=== PATIENT | male | born 1960 | race Caucasian/White ===

== ENCOUNTER 2017-08-30 18:03 | Emergency (ER) | payer MEDICARE, MEDICAID ==
[~2017-08-30] VITALS: Ht 185.4 cm; Wt 159.0 kg
[~2017-08-30 18:03] MED LIST: ALBUTEROL S2.5 MG/.5 IN; AMLODIPINE10 MG PO; BACTRIM DS1 TAB PO; CEPHALEXIN500 MG PO; COZAAR25 MG PO; DOXYCYCL HYC100 M4 PO; DUONEB IN; GLUCOPHAGE500 MG PO; HYDROCHLORO25 MG/TAB PO; HYDROCHLOROT25 MG PO; LASIX 20 MG20 MG/TAB PO; LASIX20 MG PO; LEVAQUIN750 MG PO; LISINOP/HCTZ1 TAB OR; LISINOPRIL10 MG PO; LISINOPRIL20 M1 OR; LORTAB 10 PO; LORTAB 5/3255 MG PO; MELOXICAM15 MG PO; METOPROL TAR25 M1 OR; METOPROLOL OR; NAPROSYN500 MG PO; NO HOME MEDS; OXYGEN NAS; POLYTRIM OP; PREDNISONE10 MG PO; PROAIR RES108 MCG/AC IN; SIMVASTATIN10 MG PO; SYMBICORT1 AE1 IN; ULTRAM50 M1 PO; ZESTRIL20 MG OR
[2017-08-30] MEDS ORDERED: ROSUVASTATIN CA10 MG PO (18:24)
[2017-08-30 18:46] LABS: HEMATOCRIT 51.5 % (39.0-50.0); HEMOGLOBIN 16.4 g/dl (14.0-18.0); IMMATURE GRANULOCYTES 0.4 % (0.0-1.0); MEAN CELL VOLUME 94.1 fL CALC (80.0-100.0); MEAN CORPUSCULAR HGB CONC 31.8 g/L CALC (32.0-36.0); NEUT# 12.35 thou/uL (1.82-7.42); RED BLOOD COUNT 5.47 mill/uL (4.70-6.10); RED CELL DISTRI WIDTH 13.2 % (11.5-15.5)
[2017-08-30 18:56] LABS: INFLUENZA A NONE DETECTED (NONE DETECT); INFLUENZA B NONE DETECTED (NONE DETECT)
[2017-08-30 19:00] LABS: ALBUMIN 3.5 g/dL (3.2-5.0); ALKALINE PHOSPHATASE 99 u/l (38-126); ANION GAP 16 (6-22 (CALC)); BILIRUBIN, TOTAL 0.8 mg/dL (0.0-1.4); BUN 14 mg/dL (9-20); BUN/CREATININE RATIO 14 (12-20 (CALC)); CALCIUM 9.1 mg/dL (8.4-10.2); CARBON DIOXIDE 32 mmol/l (22-30); CHLORIDE 92 mmol/l (95-108); GFR > 60 ML/MIN (>=60 (CALC)); GFR FOR AFR.AMER. > 60 ML/MIN (>=60 (CALC)); GLUCOSE 186 mg/dL (75-110); POTASSIUM 4.5 mmol/l (3.5-5.1); SGOT/AST 26 u/l (17-59); SGPT/ALT 40 u/l (21-72); SODIUM 135 mmol/l (137-146); TOTAL PROTEIN 6.7 g/dL (6.3-8.2)
[2017-08-30 19:12] LABS: MYOGLOBIN 34 ng/mL (0 - 121)
[2017-08-30 23:16] VITALS: BP 138/73
== END 2017-08-30 23:15 | disposition short-term general hospital (02) ==
LOC: ED 18:03
PROVIDERS: Emergency Medicine
DX: J44.1 Chronic obstructive pulmonary disease with (acute) exacerbation (principal); R91.8 Other nonspecific abnormal finding of lung field; I50.9 Heart failure, unspecified; R09.02 Hypoxemia; J90 Pleural effusion, not elsewhere classified; E11.9 Type 2 diabetes mellitus without complications; F17.210 Nicotine dependence, cigarettes, uncomplicated

== ENCOUNTER 2017-11-29 13:32 | Emergency (ER) | payer MEDICARE, MEDICAID ==
[~2017-11-29] VITALS: Ht 185.4 cm; Wt 140.0 kg
[~2017-11-29 13:32] MED LIST changes: +ROSUVASTATIN CA10 MG PO
[2017-11-29] MEDS ORDERED: BACTRIM DS1 TAB PO (13:50)
[2017-11-29] MEDS ORDERED: CEPHALEXIN500 M1 PO (13:50)
[2017-11-29 14:17] VITALS: BP 138/77
== END 2017-11-29 14:25 | disposition home or self-care (01) ==
LOC: ED 13:32
PROC: 0H94XZZ Drainage of Neck Skin, External Approach (ICD-10-PCS; principal; 2017-11-29)
DX: L02.11 Cutaneous abscess of neck (principal); E11.9 Type 2 diabetes mellitus without complications; I50.9 Heart failure, unspecified; J44.9 Chronic obstructive pulmonary disease, unspecified; F17.210 Nicotine dependence, cigarettes, uncomplicated; B96.89 Other specified bacterial agents as the cause of diseases classified elsewhere

== ENCOUNTER 2017-12-27 14:42 | Inpatient (IN) | payer MEDICARE, MEDICAID ==
[~2017-12-27] VITALS: Ht 185.4 cm; Wt 142.8 kg
[~2017-12-27 14:42] MED LIST changes: +CEPHALEXIN500 M1 PO
--- NOTE | 2017-12-27 14:44 | NUR ---
PT TO ROOM VIA WHEELCHAIR. PT CONVERSATIONALLY DYSPNIC. MD NOTIFIED OF PT STATUS AND RT PAGED. SAO2 92% ON ROOM AIR AT THIS TIME. PER PT HE WEARS 2 L OF O2 AT HOME WHEN NEEDED. PT PLACED ON 2 L NC. PT HAS HX OF COPD AND LUNG CA AT THIS TIME. LS DIMINISHED WITH WHEEZES BILATERALLY. HOB IN HIGH FOWLERS POSITION. CAP REFILL <3 SEC AT THIS TIME. NO EDEMA NOTED TO LOWER EXTREMITIES. PT AWARE OF PLAN OF CARE AND WAIT TIME. CALL MACDONALD WITHIN REACH, WILL CONTINUE TO MONITOR.
[2017-12-27 15:10] LABS: HEMATOCRIT 46.2 % (39.0-50.0); HEMOGLOBIN 15.8 g/dl (14.0-18.0); IMMATURE GRANULOCYTES 0.5 % (0.0-1.0); MEAN CELL VOLUME 95.7 fL CALC (80.0-100.0); MEAN CORPUSCULAR HGB 32.7 pG CALC (26.0-32.0); MEAN CORPUSCULAR HGB CONC 34.2 g/L CALC (32.0-36.0); NEUT# 14.1 thou/uL (1.82-7.42); RED BLOOD COUNT 4.83 mill/uL (4.70-6.10); RED CELL DISTRI WIDTH 15.9 % (11.5-15.5)
--- NOTE | 2017-12-27 15:25 | NUR ---
PT REPORTS RELIEF FROM NEB TX. SA02 CURRENTLY 94% ON 2 L NC. AT BEDSIDE AND PT SPEAKING IN COMPLETE SENTENCES TO . PT SITTING UPRIGHT IN STRETCHER. CALL MACDONALD WITHIN REACH.
[2017-12-27 15:39] LABS: ALBUMIN 4.2 g/dL (3.2-5.0); ALKALINE PHOSPHATASE 73 u/l (38-126); ANION GAP 19 (6-22 (CALC)); BILIRUBIN, TOTAL 1.5 mg/dL (0.0-1.4); BUN 11 mg/dL (9-20); BUN/CREATININE RATIO 14 (12-20 (CALC)); CARBON DIOXIDE 22 mmol/l (22-30); CHLORIDE 96 mmol/l (95-108); CREATININE 0.8 mg/dL (0.7-1.3); GFR > 60 ML/MIN (>=60 (CALC)); GFR FOR AFR.AMER. > 60 ML/MIN (>=60 (CALC)); POTASSIUM 4.2 mmol/l (3.5-5.1); SGOT/AST 21 u/l (17-59); SGPT/ALT 35 u/l (21-72); SODIUM 133 mmol/l (137-146); TOTAL PROTEIN 7.4 g/dL (6.3-8.2)
--- NOTE | 2017-12-27 16:00 | NUR ---
TEMP RECHECK 100.5. PT TALKING AND LAUGHING WITH SALES ENGAGEMENT MANAGER. SA02 95% AT THIS TIME. PT AWARE OF PENDING RESULTS AND WAIT TIME. CALL MACDONALD WITHIN REACH.
--- NOTE | 2017-12-27 16:40 | NUR ---
PT RESTING COMFORTABLY IN STRETCHER WATCHING TV. SAO2 95% ON 2L NC AT THIS TIME. PT DENIES ANY PAIN OR SOB AT THIS TIME. CALL MACDONALD WITHIN REACH. WILL CONTINUE TO MONITOR.
--- NOTE | 2017-12-27 17:15 | NUR ---
PT REQUESTING A DINNER TRAY AT THIS TIME. PT SITTING IN UPRIGHT POSITION, WATCHIN TV. PT AWARE OF PROBABLE ADMISSION AND WAIT TIME. TEMP RECHECK 98.5. CALL MACDONALD WITHIN REACH.
--- NOTE | 2017-12-27 18:02 | NUR ---
REPORT CALLED TO SAÚL GARRETT.
--- NOTE | 2017-12-27 18:20 | NUR ---
Admission Note Report Given to: GERRY HAYS Transported by: Wheelchair X Stretcher Transported with: X Nurse Transporter X Patent IV X O2 Care Attendant PT TO ROOM VIA STRECHER IN STABLE CONDITION. PT AMBULATED TO BED WITH A STEADY GAIT AND DENIES ANY SOB. NURSE TO NURSE BEDSIDE REPORT GIVEN.
--- NOTE | 2017-12-27 18:24 | NUR ---
PT ARRIVED FROM ER VIA STRETCHER ACCOMPANIED BY STAFF. IV SITE IS FREE FROM REDNESS OR EDEMA. HR IS REG, PULSES ARE STRONG X4, ABD IS SOFT WITH ACTIVE BS, BREATH SOUNDS ARE WHEEZING, CLEAR AND DIMINISHED IN THE BASES. FAMILY WILL BRING UP THE C PAP MACHINE. SUTURES ON THE BACK OF THE NECK IS CDI.
[2017-12-27 19:30] VITALS: BP 115/82
--- NOTE | 2017-12-27 20:00 | NUR ---
PATIENT SITTING UP IN THE BED WATCHING TV-ALERT AND ORIENTEDX3. O2 VIA NASAL CANNULA IN PLACE AT 2LPM. PATIENT STATES THAT HE USES O2 AT HOME PRN. VOIDING QS CLEAR YELLOW URINE. IV ROCEPHIN INFUSING ORDERED VIA LEFT AC IV SITE. SITE APPEARS HELATHY AT THIS TIME. PATIENT WITH BANDAID TO BACK OF HIS NECK-STATES THAT HE HAD SOME CYSTS REMOVED LAST WEEK BY DR. WALTON. SAFETY PRECAUTIONS. CALL LIGHT IN REACH. WILL CONT TO MONITOR.
--- NOTE | 2017-12-27 22:00 | NUR ---
[id number] JOLLY CALLED AND ORDERS RECIEVED-WILL ADMINISTER WHEN PROFILED ON EMAR.
--- NOTE | 2017-12-27 22:50 | NUR ---
PATIENT MEDICATED WITH 10UNITS OF REGULAR INSULIN ORDERED. PATIENT RESTING IN BED WATCHING TV-PROVIDED WITH SNACK. NO COMPLAINTS AT THIS TIME. CALL LIGHT IN REACH. WILL CONT TO MONITOR.
[2017-12-28 01:00] VITALS: BP 120/77
--- NOTE | 2017-12-28 01:09 | NUR ---
PATIENT RESTING IN BED WITH C-PAP IN PLACE AND APPEARS SLEEPING AT THIS TIME. CALL LIGHT IN REACH. WILL CONT TO MONITOR.
--- NOTE | 2017-12-28 02:12 | NUR ---
PATIENT RESTING IN BED WITH C-PAP IN PLACE. [id number] AT THIS TIME. CALL LIGHT IN REACH. WILL CONT TO MONITOR.
--- NOTE | 2017-12-28 03:52 | NUR ---
APPEARS SLEEPING WITH C-PAP IN PLACE. CALL LIGHT IN REACH. WILL CONT TO MONITOR.
[2017-12-28 04:30] VITALS: BP 115/78
[2017-12-28 07:45] VITALS: BP 145/73
--- NOTE | 2017-12-28 07:45 | NUR ---
PT IS RELAXING ON THE SIDE OF THE BED. IV SITE IS FREE FROM REDNESS OR EDEMA. HR IS REG, PULSES ARE STRONG X4, ABD IS SOFT WITH ACTIVE BS. BREATH SOUNDS ARE CLEAR AND WHEEZING AND DIMINISHED. CONTINUE TO OSBERVE AND MONITOR.
--- NOTE | 2017-12-28 12:30 | NUR ---
PT IS SITTING UP IN BED AND VISITING WITH FAMILY. NO DISTRESS NOTED. IV SITE IS FREE FROM REDNESS OR EDMEA. CONTINUE TO OSBERVE AND MONITOR.
[2017-12-28 15:23] VITALS: BP 127/73
--- NOTE | 2017-12-28 16:30 | NUR ---
PT IS SITTING UP IN BED WITH NO DISTRESS NOTED. IV SITE IS FREE FROM REDNESS OR EDEMA.
[2017-12-28 19:00] VITALS: BP 138/87
--- NOTE | 2017-12-28 19:49 | NUR ---
PATIENT SITTING UP IN THE BED WATCHING TV-ALERT AND ORIENTEDX3. O2 IS NOT IN USE AT THIS TIME WITH O2 SAT OF 95% ON RA. PATIENT WITH NO COMPLAINTS AT THIS TIME. HEP LOCK TO LEFT AC-SITE APPEARS HEALTHY AT THIS TIME. CALL LIGHT IN REACH. WILL CONT TO MONITOR.
--- NOTE | 2017-12-28 21:30 | NUR ---
[id number] WITH 10 UNITS OF NOVALOG SQ TO LEFT POST ARM. HS SNACK PROVIDED. NO COMPLAINTS AT THIS TIME. CALL LIGHT IN REACH. WILL CONT TO MONITOR.
--- NOTE | 2017-12-29 00:06 | NUR ---
APPEARS SLEEPING WITH C-PAP IN PLACE AND EYES CLOSED. CALL LIGHT IN REACH. WILL CONT TO MONITOR.
[2017-12-29 04:15] VITALS: BP 120/82
--- NOTE | 2017-12-29 04:48 | NUR ---
APPEARS SLEEPING WITH C-PAP IN PLACE. RESP ARE EVEN AND UNLABORED. CALL LIGHT IN REACH. WILL CONT TO MONITOR.
[2017-12-29 05:26] LABS: HEMOGLOBIN 14.4 g/dl (14.0-18.0); IMMATURE GRANULOCYTES 0.9 % (0.0-1.0); MEAN CELL VOLUME 97.7 fL CALC (80.0-100.0); MEAN CORPUSCULAR HGB 32.7 pG CALC (26.0-32.0); MEAN CORPUSCULAR HGB CONC 33.5 g/L CALC (32.0-36.0); NEUT# 16.7 thou/uL (1.82-7.42); RED BLOOD COUNT 4.4 mill/uL (4.70-6.10); RED CELL DISTRI WIDTH 16.3 % (11.5-15.5)
[2017-12-29 05:42] LABS: ALBUMIN 3.6 g/dL (3.2-5.0); ALKALINE PHOSPHATASE 68 u/l (38-126); ANION GAP 20 (6-22 (CALC)); BILIRUBIN, TOTAL 0.4 mg/dL (0.0-1.4); BUN 17 mg/dL (9-20); BUN/CREATININE RATIO 24 (12-20 (CALC)); CARBON DIOXIDE 25 mmol/l (22-30); CHLORIDE 98 mmol/l (95-108); CREATININE 0.7 mg/dL (0.7-1.3); GFR > 60 ML/MIN (>=60 (CALC)); GFR FOR AFR.AMER. > 60 ML/MIN (>=60 (CALC)); SGOT/AST 11 u/l (17-59); SGPT/ALT 27 u/l (21-72); SODIUM 138 mmol/l (137-146); TOTAL PROTEIN 6.6 g/dL (6.3-8.2)
--- NOTE | 2017-12-29 07:00 | NUR ---
RECEIVED BEDSIDE REPORT FROM MICHAEL PIÑA, SITTING IN BED WATCHING TV. RESPS EVEN AND UNLABORED ON ROOM AIR. DENIES PAIN OR DISCOMFORT. PLAN OF CARE DISCUSSED. SAFETY PRECAUTIONS REINFORCED. BED IN LOWEST POSITION WITH WHEELS LOCKED. CALL LIGHT WITHIN REACH. ENCOURAGED PT TO CALL FOR ANY NEEDS.
[2017-12-29 08:04] VITALS: BP 126/72
[2017-12-29 08:06] LABS: CHOLESTEROL HDL RATIO 2.9 (<4.4 (CALC))
[2017-12-29 08:07] VITALS: BP 126/72
--- NOTE | 2017-12-29 12:22 | NUR ---
SITTING IN BED EATIMNG LUNCH. VISITORS AT BEDSIDE. RESPS EVEN AND UNLABORED ON ROOM AIR. VOICES NO NEEDS AT THIS TIME. CALL LIGHT WITHIN REACH. WILL CONTINUE TO MONITOR.
--- NOTE | 2017-12-29 13:05 | NUR ---
DR RUSSO AT BEDSIDE, NEW ORDERS RECEIVED.
[2017-12-29] MEDS ORDERED: PREDNISONE10 MG PO (13:29)
[2017-12-29] MEDS ORDERED: LEVAQUIN750 MG PO (13:29)
--- NOTE | 2017-12-29 13:47 | NUR ---
IV site discontinued, cath intact. No edema , no redness, voices no discomfort.
--- NOTE | 2017-12-29 14:01 | NUR ---
Discharge instructions given. Patient verbalizes understanding of same. Discharged in stable condition via Wheelchair to Home with family. All belongings sent with pt.
== END 2017-12-29 14:00 | disposition home or self-care (01) | DRG 190 ==
LOC: ED 14:42 → ED-I 17:44 → ED 17:52 → MS2 17:53
PROVIDERS: Family Medicine; Nurse Practitioner Family; ADMIT Internal Medicine; ATTEND Internal Medicine
PROC: 5A09357 Assistance with Respiratory Ventilation, Less than 24 Consecutive Hours, Continuous Positive Airway Pressure (ICD-10-PCS; principal; 2017-12-28)
DX: J44.1 Chronic obstructive pulmonary disease with (acute) exacerbation (principal); J96.01 Acute respiratory failure with hypoxia; I11.0 Hypertensive heart disease with heart failure; I50.9 Heart failure, unspecified; E66.01 Morbid (severe) obesity due to excess calories; C34.11 Malignant neoplasm of upper lobe, right bronchus or lung; D75.89 Other specified diseases of blood and blood-forming organs; Z68.41 Body mass index [BMI] 40.0-44.9, adult; E78.5 Hyperlipidemia, unspecified; J44.0 Chronic obstructive pulmonary disease with (acute) lower respiratory infection; J20.9 Acute bronchitis, unspecified; R73.03 Prediabetes; G47.33 Obstructive sleep apnea (adult) (pediatric); Z87.891 Personal history of nicotine dependence
CPT/HCPCS: G0378

== ENCOUNTER 2019-01-22 15:13 | Inpatient (IN) | payer MEDICARE, MEDICAID ==
[~2019-01-22] VITALS: Ht 185.4 cm; Wt 136.0 kg
[~2019-01-22 15:13] MED LIST changes: +GABAPENTIN100 MG PO; +KLOR-CON SPRIN10 MEQ PO; +LOSARTAN POTASS25 MG PO; +PROAIR HFA IN
--- NOTE | 2019-01-22 15:24 | NUR ---
PT TO ROOM VIA WHEELCHAIR.
--- NOTE | 2019-01-22 15:38 | NUR ---
PT STATES SOB FOR THE LAST 3 DAYS- WEAKNESS STARTED TODAY- WAS SENT BY DR BEARD POSSIBLE SEPSIS. STATES SOB AND WEAKNESS- DENIES ANY C/P N/V. PT IS AOX4
[2019-01-22 16:21] LABS: IMMATURE GRANULOCYTES 0.8 % (0.0-5.0); MEAN CORPUSCULAR HGB 27.1 pG CALC (26.0-32.0); NEUT# 7.06 thou/uL (1.82-7.42); RED BLOOD COUNT 4.09 mill/uL (4.70-6.10); RED CELL DISTRI WIDTH 18.2 % (11.5-15.5)
--- NOTE | 2019-01-22 16:38 | NUR ---
PT RESTING ON STRETHCER, IV PATENT WITH FLUIDS RUNNING. NO COMPLAINTS STATED
[2019-01-22 16:52] LABS: HEMATOCRIT 35.8 % (39.0-50.0); HEMOGLOBIN 11.1 g/dl (14.0-18.0); MEAN CELL VOLUME 87.5 fL CALC (80.0-100.0)
[2019-01-22 16:59] LABS: ALBUMIN 3.6 g/dL (3.2-5.0); ANION GAP 18 (6-22 (CALC)); BUN 15 mg/dL (9-20); BUN/CREATININE RATIO 16 (12-20 (CALC)); CARBON DIOXIDE 25 mmol/l (22-30); CHLORIDE 95 mmol/l (95-108); CREATININE 0.9 mg/dL (0.7-1.3); GFR > 60 ML/MIN (>=60 (CALC)); GFR FOR AFR.AMER. > 60 ML/MIN (>=60 (CALC)); LIPASE 74 u/l (23-300); POTASSIUM 4.3 mmol/l (3.5-5.1); SODIUM 133 mmol/l (137-146); TOTAL PROTEIN 7.3 g/dL (6.3-8.2)
[2019-01-22 17:00] LABS: ALKALINE PHOSPHATASE 105 u/l (38-126); BILIRUBIN, TOTAL 0.9 mg/dL (0.0-1.4); SGOT/AST 26 u/l (17-59)
[2019-01-22] MEDS ORDERED: AMLODIPINE5 MG PO (17:14)
[2019-01-22] MEDS ORDERED: BUMETANIDE1 MG PO (17:15)
[2019-01-22] MEDS ORDERED: OXYCODONE HCL5 MG PO (17:16)
--- NOTE | 2019-01-22 17:38 | NUR ---
PT RESTING ON STRETCHER, NO COMPLAINTS STATED AT THIS TIME.
--- NOTE | 2019-01-22 18:51 | NUR ---
REPORT GIVEN TO REVA PIÑA
--- NOTE | 2019-01-22 19:04 | NUR ---
REPORT CALLED TO STEFAN- GIORGIO PIÑA ACCEPTED PT
[2019-01-22 19:05] LABS: URINE BILIRUBIN - DIPSTICK NEGATIVE (NEGATIVE); URINE BLOOD DIPSTICK NEGATIVE (NEGATIVE); URINE COLOR YELLOW; URINE GLUCOSE - DIPSTICK NEGATIVE (NEGATIVE); URINE KETONE NEGATIVE (NEGATIVE); URINE LEUK ESTERASE NEGATIVE (NEGATIVE); URINE NITRITE - DIPSTICK NEGATIVE (Negative); URINE PH 5.5 (4.5-8.0); URINE PROTEIN - DIPSTICK NEGATIVE (NEG-TRACE); URINE UROBILINOGEN - DIPSTICK 0.2 E.U./dL (0.2)
--- NOTE | 2019-01-22 19:09 | NUR ---
PT TRANSPORTED TO [id number] IN STABLE CONDTION.PT TAKES OFF HIS NASAL CANNULA SAYS HE ONLY USES O2 WHEN HE NEEDS IT AND HE DOES NOT NEED IT RIGHT NOW
[2019-01-22 19:20] VITALS: BP 118/72
--- NOTE | 2019-01-22 19:30 | NUR ---
PT. ARRIVED TO THE FLOOR VIA STRETCHER ACCOMPANIED BY ER NURSE. ADMISSION ASSESSMENT COMPLETED. UPDATED WITH POC. INSTRUCTED ON USE OF CALL LIGHT AND ORIENTED TO ROOM; VERBALIZES UNDERSTANDING. O2 SET AT BEDSIDE. IS TO BRING CPAP FROM HOME. PT. HAS TEMP OF 100.2, WILL MEDICATE WITH ORDERED PRN TYLENOL AND WILL REASSESS. PT. REPORTS THAT HE TAKES GABAPENTIN THREE TIMES A DAY AND IT IS ONLY PROFILED ONCE A DAY, WILL CALL MD TO CLARIFY ORDER. PT. REFUSES TO ALLOW STAFF TO INSPECT SKIN UNDERNEATH SHORTS. SWELLING NOTED TO BLE AND CHIQUITA HOSE APPLIED TO BLE. INSTRUCTED TO CALL FOR ALL OOB NEEDS AND VERBALIZES UNDERSTANDING. CALL LIGHT IS IN REACH. WILL CONTINUE TO MONITOR.
--- NOTE | 2019-01-22 20:32 | NUR ---
NOTIFIED MD FEEDER DRIVER OF CRITICAL LACTIC 2.2 AND THAT IT IS DOWN FROM INITIAL AT 2.8. ALSO NOTIFIED HIM OF PT. WANTING SYMBICORT AND GABAPENTIN TO BE ORDERED HE TAKES THESE AT HOME, NEW ORDERS RECEIVED FOR THESE MEDICATIONS, AND PT. IS INSTRUCTED OF NEED TO BRING SYMBICORT FROM HOME WE DO NOT CARRY THIS MEDICATION. ALSO NOTIFIED DR. RUSSO OF ELAVTED HR IN THE 100'S, MD IS AWARE OF THIS ALREADY AND OF HYPOTENSION, HOME B/P MEDS ARE ON HOLD.
[2019-01-22 23:46] VITALS: BP 98/60
--- NOTE | 2019-01-23 00:25 | NUR ---
pt. resting in bed on right side with eyes open, cpap on. denies needs. encouraged to call for any needs. call light is in reach.
[2019-01-23 03:29] VITALS: BP 111/69
--- NOTE | 2019-01-23 04:40 | NUR ---
PT. RESTING IN BED ON RIGHT SIDE WITH NO DISTRESS NOTED; DENIES NEEDS. NEW BAG OF ORDERED IVF HUNG. ENCOURAGED TO CALL FOR ANY NEEDS. CALL LIGHT IS IN REACH. WILL CONTINUE TO MONITOR.
--- NOTE | 2019-01-23 06:36 | NUR ---
STUDENT NURSE IN AT BEDSIDE GIVING EDUCATION ON INCENTIVE SPIROMETER.
--- NOTE | 2019-01-23 07:32 | NUR ---
Vancomycin consult Age: 58 yo Serum creatinine: 0.9 mg/dL Height: 72.8 Inches Weight (kg): 131.5 IBW (kg): 79.44 Dosing wt(kg): 131.5 Estimated Creatinine clearance (ml/min): 99.3 Vd (liters): 92.0 (factor used: 0.7 L/kg) Rachid (hr-1): 0.087 Half life (hrs): 7.97 Vancomycin 1250 mg q8h Predicted peak (mcg/mL): 25 Predicted trough (mcg/mL): 15
--- NOTE | 2019-01-23 09:00 | NUR ---
PT SITTING IN BED, NO SIGNS OF DISTRESS NOTED, RESP EVEN AND UNLABORED. PT ALERT AND ORIENTED X3, DISCUSSED POC, PT IN AGREEMENT, VITALS OBTAINED, 02 2L NC PRN, CPAP FROM HOME AT BEDSIDE FOR NIGHT TIME USE. ASSESSMENT COMPLETED, CALL LIGHT IN REACH,CONTINUE TO MONITOR.
[2019-01-23 09:01] VITALS: BP 98/51
[2019-01-23 09:12] LABS: HEMATOCRIT 32.9 % (39.0-50.0); IMMATURE GRANULOCYTES 0.7 % (0.0-5.0); MEAN CELL VOLUME 88.4 fL CALC (80.0-100.0); MEAN CORPUSCULAR HGB 26.9 pG CALC (26.0-32.0); MEAN CORPUSCULAR HGB CONC 30.4 g/L CALC (32.0-36.0); NEUT# 6.22 thou/uL (1.82-7.42); RED BLOOD COUNT 3.72 mill/uL (4.70-6.10); RED CELL DISTRI WIDTH 17.9 % (11.5-15.5)
[2019-01-23 09:33] LABS: MAGNESIUM 1.9 mg/dL (1.6-2.3)
[2019-01-23 09:35] LABS: ANION GAP 13 (6-22 (CALC)); BUN 10 mg/dL (9-20); BUN/CREATININE RATIO 16 (12-20 (CALC)); CARBON DIOXIDE 24 mmol/l (22-30); CHLORIDE 100 mmol/l (95-108); CREATININE 0.7 mg/dL (0.7-1.3); GFR > 60 ML/MIN (>=60 (CALC)); GFR FOR AFR.AMER. > 60 ML/MIN (>=60 (CALC)); POTASSIUM 3.9 mmol/l (3.5-5.1); SODIUM 134 mmol/l (137-146)
[2019-01-23 11:05] VITALS: BP 109/69
--- NOTE | 2019-01-23 11:16 | NUR ---
PT CONTINUED TO C/O BURNING PAIN EVEN AFTER GABAPENTIN, INFORMED CARDROOM DRAWING RUNNER, NEW ORDERS ENTERED, PT MEDICATED WITH LYRICA, DISCUSSED MEDICATION, PT IN AGREEMENT. CALL LIGHT IN REACH,CONTINUE TO MONITOR.
--- NOTE | 2019-01-23 12:00 | NUR ---
PT SITTING IN BED, STATES HE FEELS MUCH BETTER, THE BURNING PAIN IS NO LONGER THERE. CALL LIGHT IN REACH,CONTINUE TO MONITOR.
--- NOTE | 2019-01-23 15:35 | NUR ---
CALL RECEIVED FROM ED PT HAD AN 8 BEAT RUN BE LAMB NOTIFIED. PT SITTING IN BED STATES HE FELT HIS HEART RATE INCREASE BUT THOUGHT NOTHING OF IT. BP 114/66 HR 98. STAT EKG ORDERED AND STAT TROPONIN. CALL LIGHT IN REACH,CONTINUE TO MONITOR.
[2019-01-23 16:05] VITALS: BP 114/66
--- NOTE | 2019-01-23 16:54 | NUR ---
PT RESTING IN BED, NO SIGNS OF DISTRESS NOTED, RESP EVEN AND UNLABORED. PT VOICES NO NEEDS OR COMLPLAINTS AT THIS TIME. CALL LIGHT IN REACH,CONTINUE TO MONITOR.
--- NOTE | 2019-01-23 19:32 | NUR ---
ASSESSMENT COMPLETED. NO DISTRESS NOTED. IV SITE PATENT AND INFUSING ORDERED IVF WELL. URINAL AT BEDSIDE. TELEMETRY IN PLACE. PT. DECLINES CHIQUITA HOSE TO BE APPLIED AT THIS TIME. ENCOURATED TO CALL FOR ANY NEEDS. CALL LIGHT IS IN REACH.
[2019-01-23 19:38] VITALS: BP 112/65
[2019-01-24] VITALS (7 sets, daily range): BP systolic 105–131; BP diastolic 51–79
--- NOTE | 2019-01-24 | NUR ---
PT. RESTING IN BED WITH NO DISTRESS NOTED. DENIES NEEDS/PAIN. VSS. CALL LIGHT IS IN REACH.
--- NOTE | 2019-01-24 02:35 | NUR ---
PT. RESTING IN BED ON RIGHT SIDE WITH CPAP ON. DENIES NEEDS. URINAL EMPTIED OF 400MLS OF DARK YELLOW CLEAR URINE. IV SITE PATENT AND REMAINS FREE OF REDNESS OR IRRITATION; ERICKA GERBER PER ORDER. WILL CONTINUE TO MONITOR. TUYET LIGHT IS IN REACH.
--- NOTE | 2019-01-24 04:15 | NUR ---
STUDENT NURSE IN AT BEDSIDE OBTAINING VS. URINAL EMPTIED. DENIES NEEDS/PAIN. CALL LIGHT IS IN REACH.
[2019-01-24 05:20] LABS: HEMATOCRIT 32.6 % (39.0-50.0); HEMOGLOBIN 10.1 g/dl (14.0-18.0); IMMATURE GRANULOCYTES 0.8 % (0.0-5.0); MEAN CELL VOLUME 88.3 fL CALC (80.0-100.0); MEAN CORPUSCULAR HGB 27.4 pG CALC (26.0-32.0); NEUT# 5.45 thou/uL (1.82-7.42); RED BLOOD COUNT 3.69 mill/uL (4.70-6.10)
[2019-01-24 05:34] LABS: ANION GAP 14 (6-22 (CALC)); BUN 7 mg/dL (9-20); BUN/CREATININE RATIO 11 (12-20 (CALC)); CARBON DIOXIDE 25 mmol/l (22-30); CHLORIDE 101 mmol/l (95-108); CREATININE 0.7 mg/dL (0.7-1.3); GFR > 60 ML/MIN (>=60 (CALC)); GFR FOR AFR.AMER. > 60 ML/MIN (>=60 (CALC)); SODIUM 135 mmol/l (137-146)
--- NOTE | 2019-01-24 07:11 | NUR ---
PT SITTING IN BED, NO SIGNS OF DISTRESS NOTED, RESP EVEN AND UNLABORED. DISCUSSED POC, PT VERBALIZED UNDERSTANDING. IS AT BEDSIDE, ENCOURAGED IT'S USE. ASSESSMENT COMPLETED. CALL LIGHT IN REACH,CONTINUE TO MONITOR.
--- NOTE | 2019-01-24 09:36 | NUR ---
AIR BRAKE TESTER CALLED TO BEDSIDE, IV SITE LEAKING, #20 LAC REMOVED, CATHETER INTACT. NEW IV SITE PLACED TO PT TOLERATED WELL. CALL LIGHT IN REACH,CONTINUE TO MONITOR.
--- NOTE | 2019-01-24 10:38 | NUR ---
Vancomycin consult Weight: 131.5 Kilograms Current dose being given: 1250 mg Current dosing interval: 8 hrs Current infusion time (hrs): 2 Trough level obtained: 14 mcg/ml New rate constant (maria del carmen): 0.090 hr-1 Half-life: 7.70 Hours Vd from levels: 92.05 Liters (0.7 L/kg) Vancomycin 1500 mg Q8H Expected Cpeak: 29 mcg/mL Expected Ctrough: 17 mcg/mL
--- NOTE | 2019-01-24 17:27 | NUR ---
PT REQUESTING NEB TX, RT CALLED TO BEDSIDE.
--- NOTE | 2019-01-24 19:08 | NUR ---
ASSESSMENT COMPLETED. NO DISTRESS NOTED. O2 INFUSING PER NC. DENIES NEEDS. PT. REPORTS NO BM AND OFFERED LAXATIVE, PT DECLINES AT THIS TIME. INSTRUCTED PT. TO NOTIFY THIS WORK OVER RIG OPERATOR IF HE CHANGES HIS MIND; ALSO REMINDED HIM TO USE URINAL FOR ACCURATE OUTPUT. VERBALIZES UNDERSTANDING. IV SITE PATENT AND INFUISNG ORDERED VANCO. ENCOURAGED TO CALL FOR ANY NEEDS. CALL LIGHT IS IN REACH.
--- NOTE | 2019-01-24 20:00 | NUR ---
ER CALLED AND REPORTED PT'S HR WAS UP TO 160'S, BUT NOT SUSTAINING AND REMAINING IN THE 110'S-119. PT. IS ASYMPTOMATIC AND DENIES CP. NOTIFED DR. RUSSO OF THIS; NO NEW ORDERS RECEIVED AT THIS TIME. WILL CONTINUE TO MONITOR.
--- NOTE | 2019-01-24 23:05 | NUR ---
ER CALLED AND REPORTED THAT HR BACK UP TO 130. ASSESSED PT., HW IS ASYMPTOMATIC. VS OBTAINED AND HR 116 AT THIS TIME. TEMP 100.6, NEDICATED WITH ORDERED TYLENOL, WILL REASSESS. DENIES FURTHER NEEDS. CALL LIGHT IS IN REACH.
--- NOTE | 2019-01-25 00:18 | NUR ---
REASSESSED TEMP AND NOW 99; WILL CONTINUE TO MONITOR. URINAL EMPTIED OF 575 MLS OF DARK YELLOW URINE. ENCOURAGED TO CALL FOR ANY NEEDS. CALL LIGHT IS IN REACH.
--- NOTE | 2019-01-25 01:52 | NUR ---
PT. RESTING IN BED WITH EYES CLOSED, AROUSES EASILY. DENIES NEEDS. SCHED VANCOMYCIN HUNG. URINAL EMPTIED. CALL LIGHT IS IN REACH.
[2019-01-25 03:43] VITALS: BP 121/74
--- NOTE | 2019-01-25 03:43 | NUR ---
HAD PT. STAND TO RE-ZERO OUT BED TO TEST FOR ACCURATE WT. AND BED SCALE READS AGAIN 304.5 POUNDS. VS OBTAINED. URINAL EMPTIED AND PT. DENIES NEEDS. CALL LIGHT IS IN REACH. WILL CONTINUE TO MONITOR.
--- NOTE | 2019-01-25 05:43 | NUR ---
PT. VOIDED 850MLS. REASSESSED WT AND NOW PER BED SCALE HE IS NOW 299 LBS. WILL CONTINUE TO MONITOR.
[2019-01-25 07:14] VITALS: BP 116/71
--- NOTE | 2019-01-25 07:14 | NUR ---
PT SITTING IN BED, NO SIGNS OF DISTRESS NOTED, DISCUSSED POC, PT STATES HE HAS BEEN VOIDING A LOT, FILLING UP HIS URINAL. INSTRUCTED PT TO CALL WHEN HE NEEDS URINAL EMPTIED, VERBALIZED UNDERSTANDING. ASSESSMENT COMPLETED, VSS, CALL LIGHT IN REACH,CONTINUE TO MONITOR.
[2019-01-25 11:08] VITALS: BP 108/66
--- NOTE | 2019-01-25 12:26 | NUR ---
PT RESTING IN BED, ENCOURAGED TO AMBULATE, WALKER PROVIDED. AT BEDSIDE, STATES SHE WILL HELP AMBULATE PT AFTER LUNCH. CALL LIGHT IN REACH,CONTINUE TO MONITOR.
--- NOTE | 2019-01-25 15:29 | NUR ---
PT SITTING IN BED, C/O PAIN MEDICATED PER OCT. CALL LIGHT IN REACH,CONTINUE TO MONITOR.
[2019-01-25 15:50] VITALS: BP 120/78
--- NOTE | 2019-01-25 15:50 | NUR ---
PT SITTING IN BED, STATES HE JUST DOESNT FEEL GOOD, FEELS LIKE HE IS FULL OF FLUID. BP 120/78 HR 110, PT SPO2 90% RA, PLACED ON 02 2L NC. NOTIFIED MD AND ORDERS FOR CXR AND A DOSE OF BUMEX 1X NOW. ORDERS FAXED TO [facility] TO BE TAKEN TO RADIOLOGY.
[2019-01-25 15:53] VITALS: BP 116/54
--- NOTE | 2019-01-25 16:23 | NUR ---
RADILOGY READY TO DO CXR, PT TAKEN DOWN TO RADIOLOGY VIA WHEELCHAIR. CONTINUE TO MONITOR.
--- NOTE | 2019-01-25 18:30 | NUR ---
SPOKE WITH CARDINAL PHARMACIST JERONIMO, INSTRUCTED TO HOLD DOSE OF VANCO FOR TROUGH OF 23. NEXT DOSE DUE AT 0200, ANOTHER TROUGH ORDERED FOR 0130 PRIOR TO VANCO DOSE. PHARMACIST TO LEAVE NOTICE FOR [facility] TO ADJUST IN AM. DISCUSSED WITH PT, VERBALIZED UNDERSTANDING. CALL LIGHT IN REACH,CONTINUE TO MONITOR.
[2019-01-25 19:00] VITALS: BP 105/73
--- NOTE | 2019-01-25 19:30 | NUR ---
1930-PATIENT RESTING IN BED WITH AT BEDSIDE-AWAKE ALERT AND ORIENTEDX3. PATIENT WITH TELE MONITOR IN PLACE. TELE MONITOR IN PLACE-ER CALLED TO REPORT THAT PATIENT HAD EPISODE OF ST THEN WENT INTO A-FIB RVR THEN BACK TO ST. PATIENT IS ASYMPTOMATIC AT THIS TIME. SKIN IS WARM AND DRY. DENIES ANY CHEST PAIN OR INCREASED SOB AT THIS TIME. O2 VIA NASAL CANNULA IN PLACE AT THIS TIME, PATIENT WITH IV SITE TO RIGHT HAND INTACT. VOIDING QS CLEAR YELLOW URINE IN URINAL FOR STRICT I&O. ENCOURAGED PATIENT TO USE IS Q1H WHILE AWAKE. PATIENT NEEDS REINFORCEMENT. PATIENT STATES THAT HE HAD BM TODAY. COLT PEDAL EDEMA WITH PULSES PALPABLE. STAT EKG ORDERED. CALL LIGHT IN REACH. SAFETY PRECAUTIONS REINFORCED. WILL CONT TO MONITOR.
--- NOTE | 2019-01-25 20:15 | NUR ---
EKG WAS DONE AND SCANNED INTO SYSTEM-SHOWS ST WITH PAC, PVS'S GOING IN AND OUT OF A-FIB RVR. DR. RUSSO CALL AND WILL EVAL NEW FINDINGS. TROP ORDERED. PATIENT AWARE. DEON GERBER ORDERED VIA RIGHT HAND SITE. CALL LIGHT IN REACH. WILL CONT TO MONITOR.
--- NOTE | 2019-01-25 20:30 | NUR ---
PATIENT STATES THAT HE IS SUPOSSED TO HAVE CYST TO THE BACK OF HIS NECK REMOVED IN AM BY DR. ATKINSON HERE AT THE HOSPITAL IN AM. SPOKE WITH DR. ATKINSON WHO STATES THAT INDEED THE PATIENT WAS SUPPOSED TO HAVE THAT CYST TO THE BACK OF HIS NECK REMOVED TOMMOROW IN HIS OFFICE. DR ADVISED THAT PATIENT HAD BEEN ADMITTED TO THE HOSPITAL AND HE STATED THAT HE WOULD SEE THE PATIENT IN HIS ROOM TOMMOROW MORNING AND POSSIBLY DO PROCEDURE AT BEDSIDE. PATIENT WAS NOTIFIED OF PLAN TO BE SEEN BY DR. ATKINSON IN AM. WILL CONT TO MONITOR.
--- NOTE | 2019-01-25 21:30 | NUR ---
PATIENT SITTING UP IN BED AT THIS TIME WITH O2 VIA NASAL CANNULA IN PLACE WATCHING TV. PATIENT MEDICATED WITH LOPRESSOR 25MG PO ORDERED. MEDICATED FOR SLEEP WITH RESTORIL 15MG PO. PATIENT DECLINES ANY PAIN MEDS AT THIS TIME. SAFETY PRECAUTIONS REINFORCED. CALL LIGHT IN REACH. WILL CONT TO MONITOR.
--- NOTE | 2019-01-25 22:37 | NUR ---
PATIENT RESTING IN BED WITH BI-PAP IN PLACE. APPEARS SLEEPING AT THIS TIME, TELE MONITOR IN PLACE AND [id number]@110 AT THIS TIME. CALL LIGHT IN REACH. WILL CONT TO MONITOR.
[2019-01-26] VITALS: BP 110/74
--- NOTE | 2019-01-26 02:10 | NUR ---
SPOKE WITH JERONIMO AT [facility] REGUARDING VANCO TROUGH OF 15 TONIGHT AT 0130 BEFORE 0200AM DOSE. INSTRUCTED TO CONT WITH VANCO 1.5GM ORDERED FOR 0200DOSE. VANCO HUNG AND INFUSING VIA RIGHT HAND IV SITE. PATIENT RESTING IN BED WITH C-PAP IN PLACE. NO COMPLAINTS AT THIS TIME. TELE MONITOR IN PLACE. SAFETY PRECAUTIONS REINFORCED. CALL LIGHT IN REACH. WILL CONT TO MONITOR.
--- NOTE | 2019-01-26 04:28 | NUR ---
APPEARS SLEEPING AT THIS TIME WITH HOME C-PAP IN PLACE. IV VANCO INFUSING ORDERED. TELE MONITOR IN PLACE. CALL LIGHT IN REACH. WILL CONT TO MONITOR.
[2019-01-26 04:49] VITALS: BP 130/82
--- NOTE | 2019-01-26 07:05 | NUR ---
REPORT RECEIVED FROM AYANA RODRIGUEZ;PT RESTING IN SEMI FOWLERS POSITION,A&O X3;INTRODUCED SELF TO PT AND POC DISCUSSED;PT DENIES ANY PAIN OR DISCOMFORTS,PAIN SCALE AND REPORTING EDUCATED;TELE MONITORING IN PLACE;ENCOURAGED TO CALL FOR ASSISTANCE IF NEEDED;CALL LIGHT IN REACH;WILL CONTINUE TO MONITOR
--- NOTE | 2019-01-26 07:40 | NUR ---
PT RESTING IN BED;VS OBTAINED AND ASSESSMENT COMPLETED;PT DENIES ANY CURRENT PAIN OR DISCOMFORTS,PAIN SCALE AND REPORTING EDUCATED;RESPIRATIONS EVEN AND UNLABORED ON RA,DIMINISHED LUNG SOUNDS NOTED;ENCOURAGED I.S. USAGE 10X PER HOUR;ABDOMEN DISTENDED/SOFT ON PALPATION AND ACTIVE IN ALL 4 QUADRANTS;STRONG PEDAL PULSES WITH +2 EDEMA NOTED TO BLE,ENCOURAGED ELEVATION;#22G TO RIGHT HAND INFUSING NS @ 10ML/HR,SITE APPEARS HEALTHY;TELE MONITORING IN PLACE;ACCUCHECK 127, NO COVERAGE NEEDED AT THIS TIME;ENCOURAGED PT TO CALL FOR ASSISTANCE IF NEEDED;FALL PRECAUTIONS NOTED WITH CALL LIGHT IN REACH;WILL CONTINUE TO MONITOR
[2019-01-26 07:41] VITALS: BP 113/74
--- NOTE | 2019-01-26 09:03 | NUR ---
S: RAFFY JOYCE is a 58 M who presents with Bilateral Pneumonia. He has a history of COPD, Sleep Apnea, HTN Diabetes, Lung Cancer, and Neuropathy. All medications in patient's chart were reviewed. O: VS: BP 113/74, P 98, RR 19,T 98.3 W 136 kg, HT 73 in, Scr=0.7,CrCl= 164 ml/min A: Blood culture pending P: Patient is on Cefepime 1g Q12H and Vancomycin 1.5g Q8H. Vancomycin ordered for pharmacy to dose. Stop Vancomycin 1.5g Q8H Start Vancomycin 1.25g IV Q8H. Vancomycin trough is drawn before the 4th dose on 01/27/2019 at 0930. Vancomycin goal trough is between <15-20 mcg/ml>. Pharmacy will follow and or advise on antibiotics use as needed.
--- NOTE | 2019-01-26 10:15 | NUR ---
IV SITE TO RIGHT HAND REMOVED DUE TO LEAKING WITH CATHETER INTACT,PT REFUSES NEW IV SITE STATING "IM GOING HOME TODAY".MD TO BE NOTIFIED.
--- NOTE | 2019-01-26 11:15 | NUR ---
PT RESTING AT BEDSIDE;RESPIRATIONS REMAIN EVEN AND UNLABORED ON RA;PT DENIES ANY CURRENT PAIN OR NEEDS;NO IV SITE,MD AWARE;TELE MONITORING IN PLACE;ACCUCHECK 151, PT COVERED WITH SLIDING SCALE NOVOLOG PER ORDER;PT DENIES ANY ADDITIONAL NEEDS AND IS ENCOURAGED TO CALL FOR ASSISTANCE IF NEEDED;CALL LIGHT IN REACH;WILL CONTINUE TO MONITOR
--- NOTE | 2019-01-26 11:20 | NUR ---
AT BEDSIDE DISCUSSING POC INCLUDING D/C HOME,PT VERBALIZES UNDERSTANDING.
[2019-01-26 11:23] VITALS: BP 108/60
[2019-01-26] MEDS ORDERED: LEVAQUIN500 MG PO (11:54)
--- NOTE | 2019-01-26 12:25 | NUR ---
ALL DISCHARGE INSTRUCTIONS PROVIDED AT THIS TIME;PT INSTRUCTED TO SHUTTLELESS LOOM WEAVER ABX AT PHARMACY AND TAKE PRESCRIBED;HOME MEDICATION PROVIDED BACK TO PT FOR DISCHARGE, ALL QUESTIONS ANSWERED;PT DENIES ANY ADDITIONAL NEEDS;WHEELCHAIR TO BE PROVIDED FOR DISCHARGE HOME;AWAITING FAMILY FOR TRANSPORTATION HOME.
--- NOTE | 2019-01-26 12:53 | NUR ---
Discharge instructions given. Patient verbalizes understanding of same. Discharged in stable condition via Wheelchair to Home with spouse. All belongings sent with pt. Pt transported to [facility] for discharge home via wheelchair in stable condition accompanied by volunteer and family members.
== END 2019-01-26 12:54 | disposition home or self-care (01) | DRG 194 ==
LOC: ED 15:13 → ED-I 16:21 → ED 16:21 → ED-I 18:01 → ED 18:14 → MS2 18:15
PROVIDERS: Family Medicine; Nurse Practitioner Family; ADMIT Internal Medicine; ATTEND Internal Medicine
DX: J18.9 Pneumonia, unspecified organism (principal); C34.11 Malignant neoplasm of upper lobe, right bronchus or lung; I10 Essential (primary) hypertension; J43.9 Emphysema, unspecified; G62.0 Drug-induced polyneuropathy; T45.1X5A Adverse effect of antineoplastic and immunosuppressive drugs, initial encounter; G47.33 Obstructive sleep apnea (adult) (pediatric); I95.9 Hypotension, unspecified; L98.9 Disorder of the skin and subcutaneous tissue, unspecified; D75.89 Other specified diseases of blood and blood-forming organs; E66.01 Morbid (severe) obesity due to excess calories; Z68.39 Body mass index [BMI] 39.0-39.9, adult; Z79.899 Other long term (current) drug therapy; Z79.84 Long term (current) use of oral hypoglycemic drugs; Z87.891 Personal history of nicotine dependence; Z92.3 Personal history of irradiation
CPT/HCPCS: G0378; J0692; J3370